=== PATIENT | female | born 1950 | race Caucasian/White ===

== ENCOUNTER 2019-11-02 12:03 | Outpatient (CLI) | payer MEDICARE, OTHER ==
[2019-11-02 12:49] LABS: THYROID STIMULATING HORMONE 2.01 uIU/mL (0.34-5.60)
[2019-11-02 12:51] LABS: FREE T4 (FREE THYROXINE) 1.03 ng/dL (0.58-1.64)
== END 2019-11-02 12:04 | disposition home or self-care (01) ==
LOC: LAB 12:03
PROVIDERS: ATTEND Internal Medicine Endocrinology, Diabetes & Metabolism
DX: E03.8 Other specified hypothyroidism (principal)
CPT/HCPCS: 36415; 84439; 84443; 84481

== ENCOUNTER 2019-12-18 14:49 | Outpatient (CLI) | payer MEDICARE, OTHER ==
--- NOTE | 2019-12-18 16:59 | XRAY Report ---
PROCEDURE: Toe(s) LT INDICATIONS: INJURY LT HALLUX TECHNIQUE: 3 views of the first toe(s) acquired. COMPARISON: None FINDINGS: Bones: There is mild hallux valgus. 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 Cortical irregulari ty involving dorsal aspect of first distal phalangeal base is seen extending to first interphalangeal joint space consistent with a nondisplaced fracture. No suspicious bony lesions. Soft tissues: No suspicious soft tissue densities. IMPRESSION: Nondisplaced intra-articular fracture involving first distal phalangeal base. Mild hallux valgus and first MTP joint osteoarthritis. Reviewed by: Servando Nichole MD on 12/18/2019 4:58 PM PDT Approved by: Servando Nichoel MD on 12/18/2019 4:58 PM PDT Station ID: [id number]
== END 2019-12-18 14:50 | disposition home or self-care (01) ==
LOC: DI 14:49
PROVIDERS: ATTEND Podiatrist
DX: S92.315A Nondisplaced fracture of first metatarsal bone, left foot, initial encounter for closed fracture (principal); M19.072 Primary osteoarthritis, left ankle and foot
CPT/HCPCS: 73660

== ENCOUNTER 2020-07-15 08:00 | Outpatient (CLI) | payer MEDICARE, OTHER ==
--- NOTE | 2020-07-16 11:10 | XRAY Report ---
PROCEDURE: Wrist 3 View RT INDICATIONS: RIGHT WRIST PAIN TECHNIQUE: 3 views of the wrist were acquired. COMPARISON: None FINDINGS: Mildly impacted distal radial metaphyseal fracture. Slight loss of the normal dorsal angulation of th e distal radial articular surface . Scattered subchondral sclerosis and spurring. Severe first CMC j oint degeneration. Soft tissues: No suspicious soft tissue calcifications. IMPRESSION: Impacted distal radial metaphyseal fracture Reviewed by: Braxton Montano MD on 07/16/2020 11:09 AM PST Approved by: Braxton Montano MD on 07/16/2020 11:09 AM PST Station ID: [id number]
== END 2020-07-15 23:59 | disposition home or self-care (01) ==
LOC: DI.S 08:00
PROVIDERS: ATTEND Physician Assistant
DX: S52.591A Other fractures of lower end of right radius, initial encounter for closed fracture (principal)

== ENCOUNTER 2020-11-04 09:57 | Outpatient (CLI) | payer MEDICARE, OTHER ==
[2020-11-04 16:24] LABS: THYROID STIMULATING HORMONE 2.71 uIU/mL (0.34-5.60)
[2020-11-04 16:26] LABS: FREE T3 2.9 pg/mL (2.5-3.9)
[2020-11-04 16:27] LABS: FREE T4 (FREE THYROXINE) 0.91 ng/dL (0.58-1.64)
== END 2020-11-04 09:58 | disposition home or self-care (01) ==
LOC: LAB.S 09:57
PROVIDERS: ATTEND Internal Medicine Endocrinology, Diabetes & Metabolism
DX: E03.8 Other specified hypothyroidism (principal); E55.9 Vitamin D deficiency, unspecified
CPT/HCPCS: 36415; 84439; 84443; 84481

== ENCOUNTER 2021-02-21 15:30 | Outpatient (CLI) | payer MEDICARE, OTHER ==
[2021-02-21 20:35] LABS: THYROID STIMULATING HORMONE 2.17 uIU/mL (0.34-5.60)
[2021-02-21 20:37] LABS: FREE T3 3.04 pg/mL (2.5-3.9); FREE T4 (FREE THYROXINE) 0.95 ng/dL (0.58-1.64)
== END 2021-02-21 15:31 | disposition home or self-care (01) ==
LOC: LAB.S 15:30
PROVIDERS: ATTEND Internal Medicine Endocrinology, Diabetes & Metabolism
DX: E03.9 Hypothyroidism, unspecified (principal); R25.2 Cramp and spasm
CPT/HCPCS: 36415; 84439; 84443; 84481

== ENCOUNTER 2021-06-10 09:49 | Outpatient (CLI) | payer MEDICARE, OTHER ==
[2021-06-10 16:04] LABS: THYROID STIMULATING HORMONE 0.26 uIU/mL (0.34-5.60)
[2021-06-10 16:05] LABS: FREE T3 3.9 pg/mL (2.5-3.9)
[2021-06-10 16:06] LABS: FREE T4 (FREE THYROXINE) 1.33 ng/dL (0.58-1.64)
== END 2021-06-10 09:50 | disposition home or self-care (01) ==
LOC: LAB.S 09:49
PROVIDERS: ATTEND Internal Medicine Endocrinology, Diabetes & Metabolism
DX: E03.9 Hypothyroidism, unspecified (principal)
CPT/HCPCS: 36415; 84439; 84443; 84481

== ENCOUNTER 2021-10-30 09:27 | Outpatient (CLI) | payer MEDICARE, OTHER ==
[2021-10-30 15:05] LABS: THYROID STIMULATING HORMONE 2.52 uIU/mL (0.34-5.60)
[2021-10-30 15:06] LABS: FREE T3 2.5 pg/mL (2.5-3.9)
[2021-10-30 15:07] LABS: FREE T4 (FREE THYROXINE) 1.1 ng/dL (0.58-1.64)
== END 2021-10-30 09:28 | disposition home or self-care (01) ==
LOC: LAB.S 09:27
PROVIDERS: ATTEND Internal Medicine Endocrinology, Diabetes & Metabolism
DX: E03.9 Hypothyroidism, unspecified (principal)
CPT/HCPCS: 36415; 84439; 84443; 84481

== ENCOUNTER 2022-03-15 08:57 | Outpatient (CLI) | payer MEDICARE, OTHER ==
[2022-03-15 16:34] LABS: ALBUMIN 4.4 g/dL (3.2-5.5); ALBUMIN/GLOBULIN RATIO 1.6 (1.0-2.2); ALKALINE PHOSPHATASE 52 IU/L (42-121); ALT ALANINE AMINOTRANSFERASE 17 IU/L (10-60); AST ASPARTATE AMINOTRANSFERASE 22 IU/L (10-42); BILIRUBIN,TOTAL 0.7 mg/dL (0.2-1.0); BUN - BLOOD UREA NITROGEN 16 mg/dL (6-20); CALCIUM 9.6 mg/dL (8.5-10.3); CARBON DIOXIDE - CO2 30 mmol/L (21-32); CHLORIDE 100 mmol/L (101-111); CHOL/HDL RATIO 3.2 (<4.4); CHOLESTEROL 247 mg/dL; CREATININE 0.8 mg/dL (0.4-1.0); GFR - MDRD 71 (>89); GLUCOSE 91 mg/dL (70-100); HDL CHOLESTEROL 78 mg/dL; LDL CHOLESTEROL,CALCULATED 160 mg/dL; LDL/HDL RATIO 2.1 (<4.4); POTASSIUM 3.7 mmol/L (3.5-5.0); SODIUM 137 mmol/L (135-145); TOTAL PROTEIN 7.1 g/dL (6.7-8.2); TRIGLYCERIDES 43 mg/dL; VLDL CHOLESTEROL 9 mg/dL
[2022-03-15 16:54] LABS: FREE T3 3.32 pg/mL (2.5-3.9)
[2022-03-15 16:55] LABS: FREE T4 (FREE THYROXINE) 1.19 ng/dL (0.58-1.64)
[2022-03-15 17:05] LABS: THYROID STIMULATING HORMONE 1.69 uIU/mL (0.34-5.60)
== END 2022-03-15 08:58 | disposition home or self-care (01) ==
LOC: LAB.S 08:57
PROVIDERS: ATTEND Internal Medicine Endocrinology, Diabetes & Metabolism
DX: E03.8 Other specified hypothyroidism (principal); E78.5 Hyperlipidemia, unspecified
CPT/HCPCS: 36415; 80053; 80061; 83721; 84439; 84443; 84481

== ENCOUNTER 2023-03-20 08:41 | Outpatient (CLI) | payer MEDICARE, OTHER ==
[2023-03-20 09:10] LABS: BASOPHILS # (AUTO) 0.1 10^3/uL (0.0-0.1); BASOPHILS % (AUTO) 1.3 %; EOSINOPHILS # (AUTO) 0.2 10^3/uL (0.0-0.7); EOSINOPHILS % (AUTO) 3.4 %; HCT - HEMATOCRIT 42.1 % (37.0-47.0); HGB - HEMOGLOBIN 14.3 g/dL (12.0-16.0); LYMPHOCYTES % (AUTO) 41.6 %; MEAN CORPUSCULAR HEMOGLOBIN 31.7 pg (27.0-31.0); MEAN CORPUSCULAR VOLUME 93.3 fL (81.0-99.0); MEAN PLATELET VOLUME 10.6 fL (7.9-10.8); MONOCYTES # (AUTO) 0.3 10^3/uL (0.0-1.0); NEUTROPHILS # (AUTO) 2.2 10^3/uL (1.5-6.6); NEUTROPHILS % (AUTO) 46.5 %; PLT - PLATELET COUNT 198 10^3/uL (130-450); RED BLOOD COUNT 4.51 10^6/uL (4.20-5.40); RED CELL DISTRIBUTION WIDTH 13.3 % (12.0-15.0); WHITE BLOOD COUNT 4.7 x10^3/uL (4.8-10.8)
[2023-03-20 09:28] LABS: ALBUMIN 4.5 g/dL (3.2-5.5); BILIRUBIN,TOTAL 0.4 mg/dL (0.2-1.0); CALCIUM 9.7 mg/dL (8.5-10.3); CREATININE 0.8 mg/dL (0.6-1.3); POTASSIUM 4.1 mmol/L (3.5-4.5); TOTAL PROTEIN 6.8 g/dL (6.4-8.9)
[2023-03-20 09:39] LABS: THYROID STIMULATING HORMONE 0.33 uIU/mL (0.34-5.60)
[2023-03-20 09:47] LABS: FERRITIN 83.7 ng/mL (11.0-306.8)
== END 2023-03-20 08:42 | disposition home or self-care (01) ==
LOC: LAB 08:41
PROVIDERS: ATTEND Nurse Practitioner
DX: L65.9 Nonscarring hair loss, unspecified (principal)
CPT/HCPCS: 36415; 80053; 82306; 82607; 82728; 83520; 83540; 84439; 84443; 84466; 84481; 84630; 85025

== ENCOUNTER 2023-06-14 08:40 | Outpatient (CLI) | payer MEDICARE, OTHER ==
[2023-06-14 09:20] LABS: THYROID STIMULATING HORMONE 2.3 uIU/mL (0.34-5.60)
== END 2023-06-14 08:41 | disposition home or self-care (01) ==
LOC: LAB 08:40
PROVIDERS: ATTEND Internal Medicine Endocrinology, Diabetes & Metabolism
DX: E03.8 Other specified hypothyroidism (principal)
CPT/HCPCS: 36415; 84439; 84443; 84481

== ENCOUNTER 2023-12-19 09:08 | Outpatient (CLI) | payer MEDICARE, OTHER ==
[2023-12-19 09:48] LABS: ALBUMIN 4.2 g/dL (3.2-5.5); ALBUMIN/GLOBULIN RATIO 1.8 (1.0-2.2); ALKALINE PHOSPHATASE 48 IU/L (42-121); ALT ALANINE AMINOTRANSFERASE 16 IU/L (10-60); AST ASPARTATE AMINOTRANSFERASE 20 IU/L (10-42); BILIRUBIN,TOTAL 0.5 mg/dL (0.2-1.0); BUN - BLOOD UREA NITROGEN 13 mg/dL (6-20); CALCIUM 9.3 mg/dL (8.5-10.3); CARBON DIOXIDE - CO2 31 mmol/L (21-32); CHLORIDE 104 mmol/L (101-111); CHOL/HDL RATIO 2.4 (<4.4); CHOLESTEROL 169 mg/dL; CREATININE 0.7 mg/dL (0.6-1.3); GFR - MDRD 82 (>89); GLUCOSE 90 mg/dL (74-104); HDL CHOLESTEROL 69 mg/dL; LDL CHOLESTEROL,CALCULATED 81 mg/dL; LDL/HDL RATIO 1.2 (<4.4); POTASSIUM 3.9 mmol/L (3.5-4.5); SODIUM 138 mmol/L (135-145); TOTAL PROTEIN 6.5 g/dL (6.4-8.9); TRIGLYCERIDES 94 mg/dL (48-352); VLDL CHOLESTEROL 19 mg/dL
[2023-12-19 09:56] LABS: THYROID STIMULATING HORMONE 2.15 uIU/mL (0.34-5.60)
== END 2023-12-19 09:09 | disposition home or self-care (01) ==
LOC: LAB 09:08
PROVIDERS: ATTEND Internal Medicine
DX: E03.8 Other specified hypothyroidism (principal); E78.5 Hyperlipidemia, unspecified
CPT/HCPCS: 36415; 80053; 80061; 83721; 84443